=== PATIENT | female | born 1995 | race American Indian/Alaskan Native ===

== ENCOUNTER 2017-02-12 00:42 | Emergency (ER) | payer OTHER ==
[2017-02-12 00:54] VITALS: BP 132/88
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
[2017-02-12] MEDS ORDERED: NORCO 5/325 PO ONE (05:00)
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
== END 2017-02-12 05:50 | disposition home or self-care (01) ==
LOC: ED 00:42
DX: R07.81 Pleurodynia (principal); Z88.2 Allergy status to sulfonamides; Z88.1 Allergy status to other antibiotic agents; Z91.013 Allergy to seafood
CPT/HCPCS: 72070; 99283